=== PATIENT | female | born 1980 | race Caucasian/White ===

== ENCOUNTER 2021-04-13 19:00 | Emergency (ER) | payer OTHER ==
[2021-04-13 19:14] VITALS: TEMP 98.2
[2021-04-13] MEDS ORDERED: NITROGLYCERIN SL TABS 0.4 MG TAB SUBLINGUAL STA (19:38)
--- NOTE | 2021-04-13 19:49 | ED ---
General Adult HPI - General Chief complaint: Chest Pain Stated complaint: chest pain Time Seen by Provider: 04/13/21 19:20 Source: patient Mode of arrival: ambulatory Limitations: no limitations - History of Present Illness Initial comments: Dictation was produced using [employer] dictation software. please excuse any grammatical, word or spelling errors. Chief Complaint: 40-year-old female presents with chest pain History of Present Illness: Is a 40-year-old female presents to the emergency department for couple hours of chest pain. She states that she had some subxiphoid shortly after she had some chest pain that radiate to her back. She also states that it radiates to her left upper extremity. She's been under a lot of stress recently due to her romantic relationships. States that she also has some short of breath. No history of DVT. She is an occasional tobacco user. No history of coronary artery disease. No recent travel. She states that her symptoms are nonpleuritic. The ROS documented in this emergency department record has been reviewed and confirmed by me. Those systems with pertinent positive or negative responses have been documented in the HPI. All other systems are other negative and/or noncontributory. PHYSICAL EXAM: General Impression: Alert and oriented x3, not in acute distress HEENT: Normocephalic atraumatic, extra-ocular movements intact, pupils equal and reactive to light bilaterally, mucous membranes moist. Cardiovascular: Heart regular rate and rhythm Chest: Able to complete full sentences, no retractions, no tachypnea Abdomen: abdomen soft, non-tender, non-distended, no organomegaly Musculoskeletal: Pulses present and equal in all extremities, no peripheral edema Motor: no focal deficits noted Neurological: CN II-XII grossly intact, no focal motor or sensory deficits noted Skin: Intact with no visualized rashes Psych: Normal affect and mood ED course: 40-year-old female presents with chest pain. Vital signs upon arrival are within acceptable limits. EKG shows no signs of ischemia or infarction. No findings to suggest right heart strain. Laboratory evaluation obtained. CBC unremarkable. Coag panel is unremarkable. D-dimer is negative. Metabolic panel is within acceptable limits. Troponin is negative. Chest x-ray is nonacute. Patient reevaluated at bedside at 9:15 PM. Disposition options were discussed. It was recommended to patient to have serial troponins or be admitted observation for cardiac monitoring. Patient refuses and would rather go home. She states that she would prefer to be at home. She lives minutes away from an emergency department in [place]. She states that she will go straight to the emergency department or seek immediate medical attention if she has any recurrence. EKG interpretation: Ventricular rate 62, normal sinus rhythm,. Interval 140, QRS 80, QTc 436 per. No WI prolongation, no QTC prolongation, no ST or T-wave changes noted. No old EKG for comparison. Overall, this EKG is unremarkable - Related Data Home Medications Medication Instructions Recorded Confirmed Labetalol HCl 200 mg PO BID 04/13/21 04/13/21 Sertraline HCl [Zoloft] 200 mg PO DAILY 04/13/21 04/13/21 buPROPion HCL [buPROPion HCL Xl] 150 mg PO DAILY 04/13/21 04/13/21 Allergies Allergy/AdvReac Type Severity Reaction Status Date / Time No Known Allergies Allergy Verified 04/13/21 19:11 Review of Systems ROS Statement: Those systems with pertinent positive or pertinent negative responses have been documented in the HPI. ROS Other: All systems not noted in ROS Statement are negative. Past Medical History Past Medical History: Hypertension History of Any Multi-Drug Resistant Organisms: None Reported Past Surgical History: No Surgical Hx Reported Past Psychological History: No Psychological Hx Reported Smoking Status: Current some day smoker Past Alcohol Use History: None Reported Past Drug Use History: None Reported General Exam Limitations: no limitations Course Vital Signs 04/13/21 04/13/21 04/13/21 19:12 19:38 19:53 Temperature 98.2 F Pulse Rate 66 72 Respiratory 16 20 18 Rate Blood Pressure 121/63 122/60 O2 Sat by Pulse 99 97 Oximetry Medical Decision Making - Lab Data Result diagrams: 04/13/21 19:48 04/13/21 19:48 Lab Results 04/13/21 04/13/21 04/13/21 Range/Units 19:48 19:48 19:48 WBC 6.6 (3.8-10.6) k/uL RBC 3.92 (3.80-5.40) m/uL Hgb 12.5 (11.4-16.0) gm/dL Hct 36.0 (34.0-46.0) % MCV 91.9 (80.0-100.0) fL MCH 32.0 (25.0-35.0) pg MCHC 34.9 (31.0-37.0) g/dL RDW 12.9 (11.5-15.5) % Plt Count 238 (150-450) k/uL MPV 8.5 Neutrophils % 63 % Lymphocytes % 29 % Monocytes % 5 % Eosinophils % 2 % Basophils % 1 % Neutrophils # 4.1 (1.3-7.7) k/uL Lymphocytes # 1.9 (1.0-4.8) k/uL Monocytes # 0.3 (0-1.0) k/uL Eosinophils # 0.1 (0-0.7) k/uL Basophils # 0.0 (0-0.2) k/uL PT 12.9 H (9.0-12.0) sec INR 1.3 H (<1.2) APTT 25.1 (22.0-30.0) sec D-Dimer <0.17 (<0.60) mg/L FEU Sodium 138 (137-145) mmol/L Potassium 4.1 (3.5-5.1) mmol/L Chloride 107 (98-107) mmol/L Carbon Dioxide 22 (22-30) mmol/L Anion Gap 9 mmol/L BUN 23 H (7-17) mg/dL Creatinine 0.78 (0.52-1.04) mg/dL Est GFR (CKD-EPI)AfAm >90 (>60 ml/min/1.73 sqM) Est GFR (CKD-EPI)NonAf >90 (>60 ml/min/1.73 sqM) Glucose 117 H (74-99) mg/dL Calcium 10.2 (8.4-10.2) mg/dL Troponin I (0.000-0.034) ng/mL 04/13/21 Range/Units 19:48 WBC (3.8-10.6) k/uL RBC (3.80-5.40) m/uL Hgb (11.4-16.0) gm/dL Hct (34.0-46.0) % MCV (80.0-100.0) fL MCH (25.0-35.0) pg MCHC (31.0-37.0) g/dL RDW (11.5-15.5) % Plt Count (150-450) k/uL MPV Neutrophils % % Lymphocytes % % Monocytes % % Eosinophils % % Basophils % % Neutrophils # (1.3-7.7) k/uL Lymphocytes # (1.0-4.8) k/uL Monocytes # (0-1.0) k/uL Eosinophils # (0-0.7) k/uL Basophils # (0-0.2) k/uL PT (9.0-12.0) sec INR (<1.2) APTT (22.0-30.0) sec D-Dimer (<0.60) mg/L FEU Sodium (137-145) mmol/L Potassium (3.5-5.1) mmol/L Chloride (98-107) mmol/L Carbon Dioxide (22-30) mmol/L Anion Gap mmol/L BUN (7-17) mg/dL Creatinine (0.52-1.04) mg/dL Est GFR (CKD-EPI)AfAm (>60 ml/min/1.73 sqM) Est GFR (CKD-EPI)NonAf (>60 ml/min/1.73 sqM) Glucose (74-99) mg/dL Calcium (8.4-10.2) mg/dL Troponin I <0.012 (0.000-0.034) ng/mL Disposition Clinical Impression: Chest pain Disposition: HOME SELF-CARE Condition: Fair Instructions (If sedation given, give patient instructions): Chest Pain (ED) Additional Instructions: Please seek immediate medical attention with any recurrence of chest pain, hansa ecially if it's associated with radiation of symptoms to the jaw, upper extremities, diaphoresis and/or nausea Is patient prescribed a controlled substance at d/c from ED?: No Referrals: Nonstaff,Physician [Primary Care Provider] - 1-2 days
[2021-04-13 20:02] LABS: Basophils % (A) 1 %; Eosinophils # (A) 0.1 k/uL (0-0.7); Eosinophils % (A) 2 %; HGB 12.5 gm/dL (11.4-16.0); Lymphocytes # (A) 1.9 k/uL (1.0-4.8); Lymphocytes % (A) 29 %; MCHC 34.9 g/dL (31.0-37.0); MCV 91.9 fL (80.0-100.0); Mean Platelet Volume 8.5; Monocytes # (A) 0.3 k/uL (0-1.0); Monocytes % (A) 5 %; Neutrophils # (A) 4.1 k/uL (1.3-7.7); Neutrophils % (A) 63 %; Platelet Count 238 k/uL (150-450); RBC 3.92 m/uL (3.80-5.40); RDW 12.9 % (11.5-15.5); WBC 6.6 k/uL (3.8-10.6)
--- NOTE | 2021-04-13 20:09 | XR ---
EXAMINATION TYPE: XR chest 1V portable DATE OF EXAM: 04/13/2021 COMPARISON: NONE HISTORY: Short of breath. Chest pain TECHNIQUE: Single view FINDINGS: Heart and mediastinum are normal. Lungs are clear. Diaphragm is normal. Bony thorax appears normal. There are chest leads. IMPRESSION: Normal chest.
[2021-04-13 20:11] LABS: African American GFR (CKD) >90 (>60 ml/min/1.73 sqM); Anion Gap 9 mmol/L; Blood Urea Nitrogen 23 mg/dL (7-17); Calcium 10.2 mg/dL (8.4-10.2); Carbon Dioxide 22 mmol/L (22-30); Chloride 107 mmol/L (98-107); Glucose 117 mg/dL (74-99); Non-African American GFR(CKD) >90 (>60 ml/min/1.73 sqM); Potassium 4.1 mmol/L (3.5-5.1); Sodium 138 mmol/L (137-145)
[2021-04-13 20:22] LABS: INR 1.3 (<1.2); Partial Thromboplastin Time 25.1 sec (22.0-30.0); Prothrombin Time 12.9 sec (9.0-12.0)
[2021-04-13] MEDS ORDERED: ASPIRIN 81 MG PO STA (21:18)
[2021-04-13 21:37] VITALS: BP 130/65; PULSE 73; RESP 15
== END 2021-04-13 21:36 | disposition home or self-care (01) ==
LOC: EC 19:00
DX: R07.9 Chest pain, unspecified (principal); I10 Essential (primary) hypertension; F17.200 Nicotine dependence, unspecified, uncomplicated; Z79.899 Other long term (current) drug therapy
CPT/HCPCS: 36415; 71045; 80048; 84484; 85025; 85379; 85610; 85730; 93005; 99285